=== PATIENT | male | born 1980 | race Caucasian/White ===

== ENCOUNTER 2018-08-28 16:44 | Emergency (ER) | payer OTHER ==
[2018-08-28] MEDS ORDERED: IPRATROPIUM/ALBUTEROL 3 ML DEYVIAL IH ONE (17:38)
--- NOTE | 2018-08-28 17:43 | EDPHY ---
H & P Stated Complaint: sinus issues since may 3 courses of abx /not better/ dyspnea Time Seen by Provider: 08/28/18 17:09 HPI/ROS: CHIEF COMPLAINT: Ongoing sinus issues, cough since May 2018 HISTORY OF PRESENT ILLNESS: 38-year-old immunocompetent male complaining of sinus congestion, sinus pressure, intermittently productive cough, fatigue, since May 2018. He has been seen by his primary care provider under, has been seen by Dr. Charlie Turner [facility]. He has been on a total of 3 courses of different antibiotics and notes continued symptomatology. 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 Today he ran 5 miles but notes that he became fatigued. No chest pain with exertion, no dyspnea with exertion beyond that expected with exertion. PRIMARY CARE PROVIDER: Dr. Jonnie Lugo REVIEW OF SYSTEMS: 10 systems reviewed and negative with the exception of the elements mentioned in the history of present illness PAST MEDICAL & SURGICAL HISTORY: septoplasty by Dr. Charlie Turner June 2017 SOCIAL HISTORY: Nonsmoker PHYSICAL EXAM (Prior to examination, patient consented to physical exam, hands were washed and my usual and customary physical exam procedures followed) 1) GENERAL: Well-developed, well-nourished, alert and oriented. Appears to be in no acute distress. 2) HEAD: Normocephalic, atraumatic 3) HEENT: Pupils equal, round, reactive to light bilaterally. Sclera anicteric. Nasopharynx, oropharynx, clear, no lesions. MoistDry mucous membranes. Ears bilaterally with normal tympanic membranes. 4) NECK: Full range of motion, no meningeal signs. 5) LUNGS: Clear auscultation bilaterally, no wheezes, no rhonchi, no retractions. 6) HEART: Regular rate and rhythm, no murmur, no heave, no gallop. 7) ABDOMEN: No guarding, no rebound, no focal tenderness, negative McBurney's, negative Martinez's, negative Rovsing's, negative peritoneal sign, 8) MUSCULOSKELETAL: Moving all extremities, no focal areas of tenderness, no obvious trauma. No peripheral edema or discoloration. 9) BACK: No CVA tenderness, no midline vertebral tenderness, no fluctuance, no step-off, no obvious trauma, no visual or palpable abnormality. 10) SKIN: No rash, no petechiae. 11) Psychiatric: Patient is oriented X 3, there is no agitation. DIFFERENTIAL DIAGNOSIS: In no particular order including but not limited to chronic sinusitis, reactive airways disease, mononucleosis - Personal History Current Tetanus Diphtheria and Acellular Pertussis (TDAP): Yes - Medical/Surgical History Hx Asthma: No Hx Chronic Respiratory Disease: No Hx Diabetes: No Hx Cardiac Disease: No Hx Renal Disease: No Hx Cirrhosis: No Hx Alcoholism: No Hx HIV/AIDS: No Hx Splenectomy or Spleen Trauma: No Other PMH: r acl - Social History Smoking Status: Never smoked Constitutional: Initial Vital Signs Temperature (C) 36.8 C 08/28/18 16:53 Heart Rate 62 08/28/18 16:53 Respiratory Rate 18 08/28/18 16:53 Blood Pressure 112/63 08/28/18 16:53 O2 Sat (%) 96 08/28/18 16:53 O2 Delivery Mode Room Air Allergies/Adverse Reactions: No Known Allergies Allergy (Unverified 08/28/18 16:53) Home Medications: Medication Instructions Recorded Albuterol 08/28/18 Symbicort 160-4.5 Mcg Inh (*) 08/28/18 methylPREDNISolone [Medrol Dose 4 mg PO DAILY #1 ea 08/28/18 Miguel] Medical Decision Making - Diagnostics Imaging Results: Imaging Impressions Chest X-Ray 08/28/18 17:38 Impression: Mild perihilar bronchitis, without a focal infiltrate. Head CT 08/28/18 17:44 Impression: 1. No significant intracranial abnormality seen. 2. Nonspecific maxillary, ethmoid, and frontal sinus disease with mucosal thickening but no air-fluid levels. If symptoms worsen, additional imaging may be necessary. Findings discussed with Camille PLAZA at 18:17 hour, 08/28/2018. Images reviewed myself ED Course/Re-evaluation: 5:40 p.m.: Patient noted to have bibasilar rales. Will obtain chest x-ray, administer DuoNeb treatment, check basic laboratory studies as patient notes ongoing symptomatology for several months, has not had diagnostic studies performed. Care of patient under supervision of secondary supervising physician Dr Mendieta with whom I discussed case. 6:50 p.m.: Re-evaluation. Patient has received DuoNeb treatment. Lungs are auscultated honor clear bilaterally. He notes sufficient amount of Symbicort and albuterol at home which I recommend continued use. I discussed his laboratory studies with him. He is noted to have signs of sinusitis with no air -fluid levels. At this time, the patient has recently completed 3 courses of antibiotics, most recently completed is 7 days ago, hesitant to prescribe further antibiotics due to concerns over adverse effects. We discussed following up with Infectious Disease should he necessitate long-term antibiotics. I do think he would benefit from Medrol Dosepak. He has no evidence of infiltrate on chest x-ray. He feels comfortable being discharged. Given my usual and customary discharge precautions instructions. - Data Points Laboratory Results: Laboratory Results 08/28/18 17:35 08/28/18 17:35 08/28/1818 08/28/18 17:35 17:35 17:35 WBC 10.92 10^3/uL H 10^3/uL (3.80-9.50) RBC 5.22 10^6/uL 10^6/uL (4.40-6.38) Hgb 16.5 g/dL g/dL (13.7-17.5) Hct 47.1 % % (40.0-51.0) MCV 90.2 fL fL (81.5-99.8) MCH 31.6 pg pg (27.9-34.1) MCHC 35.0 g/dL g/dL (32.4-36.7) RDW 11.8 % % (11.5-15.2) Plt Count 212 10^3/uL 10^3/uL (150-400) MPV 9.9 fL fL (8.7-11.7) Neut % (Auto) 82.7 % H % (39.3-74.2) Lymph % (Auto) 11.2 % L % (15.0-45.0) [place] % (Auto) 4.6 % % (4.5-13.0) Eos % (Auto) 0.7 % % (0.6-7.6) Baso % (Auto) 0.2 % L % (0.3-1.7) Nucleat RBC Rel Count 0.0 % % (0.0-0.2) Absolute Neuts (auto) 9.03 10^3/uL H 10^3/uL (1.70-6.50) Absolute Lymphs (auto) 1.22 10^3/uL 10^3/uL (1.00-3.00) Absolute Monos (auto) 0.50 10^3/uL 10^3/uL (0.30-0.80) Absolute Eos (auto) 0.08 10^3/uL 10^3/uL (0.03-0.40) Absolute Basos (auto) 0.02 10^3/uL 10^3/uL (0.02-0.10) Absolute Nucleated RBC 0.00 10^3/uL 10^3/uL (0-0.01) Immature Gran % 0.6 % % (0.0-1.1) Immature Gran # 0.07 10^3/uL 10^3/uL (0.00-0.10) Sodium 137 mEq/L mEq/L (135-145) Potassium 3.9 mEq/L mEq/L (3.5-5.2) Chloride 105 mEq/L mEq/L (97-110) Carbon Dioxide 22 mEq/l mEq/l (22-31) Anion Gap 10 mEq/L mEq/L (6-14) BUN 22 mg/dL mg/dL (7-23) Creatinine 1.0 mg/dL mg/dL (0.7-1.3) Estimated GFR > 60 Glucose 103 mg/dL H mg/dL (70-100) Calcium 9.7 mg/dL mg/dL (8.5-10.4) Creatine Kinase 321 IU/L H IU/L (0-224) CK-MB (CK-2) Fraction 4.81 ng/mL H ng/mL (0.00-4.55) CK-MB (CK-2) % 1.5 % % (0.0-4.0) Creatine Kinase Interp NEGATIVE (NEGATIVE) TSH 2.140 uIU/mL uIU/mL (0.465-4.680) Monoscreen NEGATIVE (NEGATIVE) Medications Given: Discontinued Medications Albuterol/Ipratropium (Duoneb) 3 ml IH EDNOW ONE Stop: 08/28/18 17:39 Last Admin: 08/28/18 17:42 Dose: 3 ml Ibuprofen (Motrin) 600 mg PO EDNOW ONE Stop: 08/28/18 18:45 Last Admin: 08/28/18 18:47 Dose: 600 mg Departure - Departure Disposition: Home, Routine, Self-Care Clinical Impression: Sinus disease Mild reactive airways disease Qualifiers: Asthma persistence: intermittent Asthma complication type: with acute exacerbation Qualified Code(s): J45.21 - Mild intermittent asthma with (acute) exacerbation Condition: Good Instructions: Reactive Airways Disease (ED), How Your Lungs Work (ED) Additional Instructions: Return to the emergency department immediately for change in breathing habits, change in voice, change in swallowing habits, change in mental status, or any other symptoms that concern you. Referrals: Jonnie Lugo MD [Primary Care Provider] - 2-3 days, call for appt. Charlie Turner MD [Medical Doctor] - 5-7 days, call for appt. Charlie Dobson MD [Medical Doctor] - 5-7 days, call for appt. Prescriptions: methylPREDNISolone [Medrol Dose Miguel] 4 mg PO DAILY #1 ea
[2018-08-28 17:50] LABS: PLATELET COUNT 212 10^3/uL (150-400)
[2018-08-28 18:05] LABS: CREATINE KINASE 321 IU/L (0-224)
[2018-08-28 18:44] VITALS: BP 125/64
[2018-08-28] MEDS ORDERED: IBUPROFEN 600 MG TAB PO ONE (18:44)
== END 2018-08-28 19:23 | disposition home or self-care (01) ==
DX: J32.9 Chronic sinusitis, unspecified (principal); J40 Bronchitis, not specified as acute or chronic; J45.21 Mild intermittent asthma with (acute) exacerbation; D84.9 Immunodeficiency, unspecified